=== PATIENT | female | born 2000 ===

== ENCOUNTER 2024-01-16 18:38 | Outpatient (CLI) | payer OTHER, SELFPAY ==
[2024-01-16 21:06] LABS: Chlamydia DNA Amplified* NOT DETECTED (No Detected); GC DNA Amplified* NOT DETECTED (No Detected)
== END 2024-01-16 18:39 | disposition home or self-care (01) ==
LOC: NFLDREF 18:39
PROVIDERS: Visit Provider Registered Nurse
DX: Z11.3 Encounter for screening for infections with a predominantly sexual mode of transmission (principal)
CPT/HCPCS: 87491; 87591

== ENCOUNTER 2024-07-19 14:12 | Outpatient (CLI) | payer OTHER, SELFPAY ==
[2024-07-19 17:33] LABS: Chlamydia DNA Amplified* NOT DETECTED (No Detected); GC DNA Amplified* NOT DETECTED (No Detected)
== END 2024-07-19 14:13 | disposition home or self-care (01) ==
LOC: NFLDREF 14:13
PROVIDERS: Visit Provider Registered Nurse
DX: N89.8 Other specified noninflammatory disorders of vagina (principal); Z11.3 Encounter for screening for infections with a predominantly sexual mode of transmission
CPT/HCPCS: 87491; 87591

== ENCOUNTER 2024-10-16 13:17 | Outpatient (CLI) | payer OTHER, SELFPAY ==
[2024-10-16 22:52] LABS: Chlamydia DNA Amplified* NOT DETECTED (No Detected); GC DNA Amplified* NOT DETECTED (No Detected)
== END 2024-10-16 13:18 | disposition home or self-care (01) ==
LOC: NFLDREF 13:18
PROVIDERS: Visit Provider Registered Nurse
DX: Z11.3 Encounter for screening for infections with a predominantly sexual mode of transmission (principal); N89.8 Other specified noninflammatory disorders of vagina; R10.2 Pelvic and perineal pain
CPT/HCPCS: 87491; 87591

== ENCOUNTER 2024-11-04 10:32 | Outpatient (CLI) | payer OTHER, SELFPAY ==
--- NOTE | 2024-11-04 10:45 | CRLHL7_ITS ---
For Patients: As a result of the Century Cures Act, medical imaging exams and procedure reports are released immediately into your electronic medical record. You may view this report before your referring provider. If you have questions, please contact your health care provider. CLINICAL HISTORY: pelvic and perineal pain COMPARISON: None. TECHNIQUE: 2D traore-scale ultrasound. In addition, color Doppler and spectral Doppler analysis was performed of the pelvis using a transabdominal and transvaginal approach. Transvaginal imaging performed to better visualize the endometrial stripe and ovaries. FINDINGS: The myometrium has a normal uniform echotexture. The uterus measures 7.8 x 3.4 x 5.0 cm. The endometrial lining appears normal and measures 4.8 mm in thickness. Normal position of an IUD within the endometrial canal. The right ovary measures 3.0 x 2.7 x 2.2 cm in size and the left ovary measures 3.0 x 2.6 x 2.2 cm. The ovaries demonstrate normal arterial and venous blood flow on color Doppler and spectral Doppler analysis. There are no suspicious fluid collections within the cul-de-sac. IMPRESSION: Normal position of an IUD within the endometrial canal. Normal ovaries. Dictated by Mars Schmitz MD @ 11/04/2024 11:09:53 AM (Electronically Signed)
== END 2024-11-04 10:33 | disposition home or self-care (01) ==
LOC: US 10:32
PROVIDERS: Visit Provider Registered Nurse
DX: R10.2 Pelvic and perineal pain (principal)
CPT/HCPCS: 76830; 76856; 93976